=== PATIENT | male | born 1960 | race Caucasian/White ===

== ENCOUNTER → 2022-04-16 08:31 | Day surgery (SDC) | payer BC, SELFPAY ==
--- NOTE | 2022-04-15 09:37 | HO.ANESPROP2 ---
HPI - Anesthesia Eval Consult details Narrative: Cx DOS for +Utox 62yo M for Right Hernia Repair Inguinal with mesh Per PCP note, cocaine abuse PMFSH Active Problems Active Problems: All Active Problems (Updated 03/25/22 @ 15:30 by Wilman Mario MD) Colon cancer screening (Acute) Right inguinal hernia (Acute) Smoker (Acute) Past Medical History Medical History Colon cancer screening Right inguinal hernia Smoker Surgical History Surgical History No pertinent past surgical history Social History Social History Alcohol intake: never Patient Tobacco Use Status: Current everyday Tobacco user Meds Allergies Allergy/AdvReac Type Severity Reaction Status Date / Time No Known Allergies Allergy Verified 03/25/22 15:15 Home Medications Medication Instructions Recorded Confirmed Last Taken Type No Known Home Meds 03/25/22 03/25/22 Unknown History Exam Exam Date and Time: April 15, 2022 0937 Assessment and Plan Assessment Anesthesia Assessment: Chart Reviewed
[2022-04-16 09:06] LABS: Amphetamine Screen Urine Not Detected (Not Detect); Barbiturates, Urine Not Detected (Not Detect); Benzodiazepines Screen Urine Not Detected (Not Detect); Cannabinoid Screen Urine Not Detected (Not Detect); Cocaine Screen Urine POSITIVE (Not Detect); Fentanyl, urine Not Detected (Not Detect); Opiate Screen Urine Not Detected (Not Detect); Phencyclidine Screen Urine Not Detected (Not Detect)
== END ==
PROVIDERS: Nurse Practitioner; PCP Internal Medicine; Visit Provider Surgery
DX: K40.90 Unilateral inguinal hernia, without obstruction or gangrene, not specified as recurrent (principal); Z53.8 Procedure and treatment not carried out for other reasons; F17.210 Nicotine dependence, cigarettes, uncomplicated
CPT/HCPCS: 80307; J1100; J2250; J2405; J3010

== ENCOUNTER 2022-05-14 09:11 | Day surgery (SDC) | payer BC, SELFPAY ==
[2022-05-07 16:26] VITALS: BMI 24.3
--- NOTE | 2022-05-13 09:32 | P.CONAN_ITS ---
Documented by User: Joanne Green NP 05/13/22 09:32 HPI - Anesthesia Eval Consult details Narrative: 62yo M for Right Hernia Repair Inguinal with mesh Previously cx'd for +Utox DOS. [facility] Active Problems Active Problems: All Active Problems (Updated 05/07/22 @ 16:21 by Kim López, DANIEL) Colon cancer screening (Acute) Right inguinal hernia (Acute) Smoker (Acute) Past Medical History Medical History Colon cancer screening Essential hypertension GERD (gastroesophageal reflux disease) History of cocaine use Right inguinal hernia Smoker Surgical History Surgical History No pertinent past surgical history Social History Social History Are you a primary specialist wound care to a significant other at home: No Do you presently have visiting nurse or other home services: No Alcohol intake: never Patient Tobacco Use Status: Current everyday Tobacco user Tobacco use type: Cigarette Use of substances other than those prescribed or required for medical reasons: Yes Are you DNR?: No Advance Directives: No Advance Directives Information Provided: Yes Advance Directives on File: No Meds Allergies Allergy/AdvReac Type Severity Reaction Status Date / Time No Known Allergies Allergy Verified 05/07/22 16:21 Home Medications Medication Instructions Recorded Confirmed Last Taken Type omeprazole magnesium 20 mg 20 mg PO DAILY 05/07/22 05/07/22 Unknown History capsule,delayed release Exam Exam Date and Time: May 13, 2022 0932 Height,Weight and Vital Signs: Height 5 ft 7 in Weight 70.307 kg Assessment and Plan Assessment Anesthesia Assessment: Chart Reviewed Documented by User: Roxanna Lopez MD 05/14/22 12:20 [facility] Past Medical History Medical History Colon cancer screening Essential hypertension GERD (gastroesophageal reflux disease) History of cocaine use Right inguinal hernia Smoker Surgical History Surgical History No pertinent past surgical history Social History Social History Are you a primary specialist wound care to a significant other at home: No Do you presently have visiting nurse or other home services: No Alcohol intake: never Patient Tobacco Use Status: Current everyday Tobacco user Tobacco use type: Cigarette Use of substances other than those prescribed or required for medical reasons: Yes Are you DNR?: No Advance Directives: No Advance Directives Information Provided: Yes Advance Directives on File: No Meds Allergies Allergy/AdvReac Type Severity Reaction Status Date / Time No Known Allergies Allergy Verified 05/07/22 16:21 Home Medications Medication Instructions Recorded Confirmed Last Taken Type omeprazole magnesium 20 mg 20 mg PO DAILY 05/07/22 05/07/22 Unknown History capsule,delayed release Exam Airway Mallampati Class: II TM Dist: >3cm Neck ROM: Full Heart: rr Lungs: cta Assessment and Plan Final Anesthetic Review Final Preanesthetic Review: No Changes in Pt Med Stat Patient Risk: Low Procedure Risk: Intermediate Anesthetic Plan Anesthetic Plan: GA Disposition: Standard PACU
[2022-05-14] VITALS (9 sets, daily range): BP systolic 121–145; BP diastolic 59–102; PULSE 52–65; RESP 16–18; TEMP 36.1–36.2; O2SAT 97–99
[2022-05-14 11:26] LABS: Amphetamine Screen Urine Not Detected (Not Detect); Barbiturates, Urine Not Detected (Not Detect); Benzodiazepines Screen Urine Not Detected (Not Detect); Cannabinoid Screen Urine Not Detected (Not Detect); Cocaine Screen Urine Not Detected (Not Detect); Fentanyl, urine Not Detected (Not Detect); Opiate Screen Urine Not Detected (Not Detect); Phencyclidine Screen Urine Not Detected (Not Detect)
--- NOTE | 2022-05-14 13:21 | P.OP_ITS ---
Operative Note Operative Note Date of Service: 05/14/22 Narrative: Preop diagnosis: Right inguinal hernia Postop diagnose: Right inguinal hernia, indirect Procedure: Repair of right inguinal hernia with mesh Surgeon: Wilman Mario MD assistant administrator: KARAN Bryant The patient is a 62-year-old male with a reducible mass on the right groin consistent with a right inguinal hernia. He understood the technique of repair with mesh. He was aware of the risks, benefits, and alternatives. He was brought the operating room. He was placed supine under general anesthesia via laryngeal mask airway. The right groin was prepped and draped in the usual sterile fashion. A surgical time-out was done. The patient received cefazolin 2 g IV preoperatively. I infiltrated the planned line of incision with lidocaine 1%. I made a short incision on the skin using blade 15 along an imaginary line from the anterior superior iliac spine to the pubic ramus. This was carried down with electrocautery through the full-thickness of the skin subcutaneous fat down to the fascia. The external oblique aponeurosis was bluntly dissected to expose the external ring. I madea an incision on the external oblique neurosis along its fibers and extended this inferomedially to connect with the external ring. The inguinal canal was therefore entered. I applied hemostats on the divided edges of the aponeurosis. I bluntly dissected the underside to create a pocket for the mesh. Proceeded to bluntly dissect the spermatic cord and its contents using my index finger until I was able to pass a Iftikhar drain around this. This Iftikhar drain was used for retraction. I identified the vas deferens and accompanying vessels. These were protected with the rest of the dissection. The hernia was seen on the anti medial aspect and this contained only fat. I gently this from the rest of the cord contents until I was able to reduce this completely through the internal ring. I then reinforced the internal ring with the Prolene plug. The plug was secured with Prolene 2-0 sutures to the shelving edge of the inguinal meant laterally, the internal oblique superiorly and medially using the inner leaves of the mesh. I then positioned a keyhole mesh along the floor. The tails of the mesh were passed around the cord at the level of the internal ring and were secured together with Prolene 2-0 sutures as well. I flattened the mesh. I secured the mesh with Prolene 2 sutures to the shelving edge of the inguinalligament laterally, and the internal oblique medially as well as superiorly, at and the pubic ramus inferomedially. I removed the Iftikhar drain. I irrigated. I observed for hemostasis. Once hemostasis was confirmed I closed the external oblique aponeurosis were running Dexon 2-0 stitch to re-create the external ring The subcutaneous layer was reapposed with Dexon 3-0 interrupted sutures. Skin closure was achieved with Dexon 4-0 subcuticular running stitch. Steri-Strips and dressings were applied. The incision was infiltrated with Marcaine 0.5% for postop analgesia and the procedure was completed The patient tolerated procedure well. There were no immediate complications. Initial final counts of sponges instruments were correct. Estimated blood loss about 10 cc The patient extubated without difficulty and transferred to recovery room with stable vital signs.
[2022-05-14] MEDS: fentaNYL citrate/PF 100 MCG/2 ML VIAL 50 MCG IVPUSH ×2 (14:02→14:31)
[2022-05-14] MEDS: oxyCODONE HCl Immed Release 5 MG TABLET PO (14:06)
== END 2022-05-14 15:48 | disposition home or self-care (01) ==
PROVIDERS: Nurse Practitioner; PCP Internal Medicine; Visit Provider Surgery
PROC: (CPT 49505; principal; 2022-05-14 11:20)
DX: K40.90 Unilateral inguinal hernia, without obstruction or gangrene, not specified as recurrent (principal); F17.210 Nicotine dependence, cigarettes, uncomplicated; I10 Essential (primary) hypertension; K21.9 Gastro-esophageal reflux disease without esophagitis; F14.90 Cocaine use, unspecified, uncomplicated; Z79.899 Other long term (current) drug therapy
CPT/HCPCS: 49505; 80307; C1781; J0690; J2250; J2405; J2795; J3010

== ENCOUNTER → 2022-05-30 09:29 | Outpatient (BNVA) | payer BC, SELFPAY | PROVIDERS: PCP Internal Medicine; Visit Provider Physician Assistant Surgical | DX: Z09 Encounter for follow-up examination after completed treatment for conditions other than malignant neoplasm (principal) ==

== ENCOUNTER → 2022-06-13 14:18 | Outpatient (BNVA) | payer BC, SELFPAY | PROVIDERS: PCP Internal Medicine; Visit Provider Surgery | DX: Z13.89 Encounter for screening for other disorder (principal) ==